=== PATIENT | male | born 1985 | race American Indian/Alaskan Native ===

== ENCOUNTER 2017-02-26 10:41 | Emergency (ER) | payer SELFPAY ==
[2017-02-26 10:56] VITALS: BP 134/81
[2017-02-26 11:16] LABS: Basophils % (Auto) 2.7 % (0.0-1.8); Eosinophils % (Auto) 3.2 % (0.0-4.3); Hematocrit 47.9 % (35.5-45.6); Hemoglobin 15.9 gm/dl (11.8-15.2); Mean Corpuscular HGB Conc 33 % (32-34); Mean Corpuscular Hemoglobin 29 pg (28-32); Mean Corpuscular Volume 86 fl (84-94); Platelet Count 201 K/mm3 (140-440); Red Blood Count 5.55 M/mm3 (3.65-5.03); Red Cell Distribution Width 14.5 % (13.2-15.2); White Blood Count 5.1 K/mm3 (4.5-11.0)
[2017-02-26 11:34] LABS: Alanine Aminotransferase 77 units/L (7-56); Albumin 4.5 g/dL (3.9-5); Albumin/Globulin Ratio 1.2 %; Alkaline Phosphatase 72 units/L (35-129); Anion Gap 18 mmol/L; BUN/Creatinine Ratio 12.14; Blood Urea Nitrogen 17 mg/dL (9-20); Calcium 9.4 mg/dL (8.4-10.2); Carbon Dioxide 24 mmol/L (22-30); Chloride 102.8 mmol/L (98-107); Glucose 95 mg/dL (75-100); Lipase 16 units/L (13-60); Potassium 4.4 mmol/L (3.6-5.0); Sodium 140 mmol/L (137-145); Total Protein 8.2 g/dL (6.3-8.2)
[2017-02-26 11:36] LABS: Bilirubin,Urine NEG (Negative); Blood,Urine NEG (Negative); Ketones,Urine NEG (Negative); Leukocyte Esterase,Urine NEG (Negative); Mucus,Urine FEW /HPF; Nitrite,Urine NEG (Negative); Protein,Urine <15 mg/dL mg/dL (Negative); Urobilinogen,Urine < 2.0 mg/dL (<2.0)
--- NOTE | 2017-02-26 18:11 | ED Elopement Review ---
ED Pt Elopement review - Results review Lab results: Laboratory Tests 02/26/17 02/26/17 02/26/17 10:58 10:58 11:05 WBC 5.1 RBC 5.55 H Hgb 15.9 H Hct 47.9 H MCV 86 MCH 29 MCHC 33 RDW 14.5 Plt Count 201 Lymph % (Auto) 37.2 H Preble % (Auto) 12.2 H Eos % (Auto) 3.2 Baso % (Auto) 2.7 H Lymph # 1.9 Preble # 0.6 Eos # 0.2 Baso # 0.1 Seg Neutrophils % 44.7 Seg Neutrophils # 2.3 Sodium 140 Potassium 4.4 Chloride 102.8 Carbon Dioxide 24 Anion Gap 18 BUN 17 Creatinine 1.4 Estimated GFR > 60 BUN/Creatinine Ratio 12.14 Glucose 95 Calcium 9.4 Total Bilirubin 0.50 AST 76 H ALT 77 H Alkaline Phosphatase 72 Total Protein 8.2 Albumin 4.5 Albumin/Globulin Ratio 1.2 Lipase 16 Urine Color Yellow Urine Turbidity Clear Urine pH 5.0 Ur Specific [place] 1.021 Urine Protein <15 mg/dl Urine Glucose (UA) Neg Urine Ketones Neg Urine Blood Neg Urine Nitrite Neg Urine Bilirubin Neg Urine Urobilinogen < 2.0 Ur Leukocyte Esterase Neg Urine WBC (Auto) 1.0 Urine RBC (Auto) 2.0 U Epithel Cells (Auto) < 1.0 Urine Mucus Few - Call Back decision Pt Call Back Decision: Pt to F/U with PMD (elevation of LFTs)
== END 2017-02-26 11:06 | disposition left against medical advice (07) ==
LOC: ED 10:41
DX: R10.9 Unspecified abdominal pain (principal); Z53.21 Procedure and treatment not carried out due to patient leaving prior to being seen by health care provider
CPT/HCPCS: 36415; 80053; 81001; 83690; 85025